=== PATIENT | male | born 1945 | race Caucasian/White ===

== ENCOUNTER → 2018-01-18 | Outpatient (CLI) | payer OTHER | LOC: BHLMT 11:00 | PROVIDERS: ATTEND Internal Medicine Interventional Cardiology | DX: I48.91 Unspecified atrial fibrillation (principal) | CPT/HCPCS: 93225-PO; 93226-PO ==

== ENCOUNTER 2018-02-17 07:35 | Day surgery (SDC) | payer OTHER ==
[2018-02-17] MEDS ORDERED: MIDAZOLAM 2 MG/2 ML VIAL IVP ONE (07:37)
[2018-02-17] MEDS ORDERED: ATROPINE SULFATE 1 MG/10 ML SYR IVP ONE (07:37)
[2018-02-17] MEDS ORDERED: NS 500 ML IV ONE (07:37)
[2018-02-17] MEDS ORDERED: fentaNYL 100 MCG/2 ML INJ IVP ONE (07:37)
[2018-02-17] MEDS ORDERED: BENZOCAINE UNIT DOSE SPRAY HURRICAINE MM ONE (07:37)
--- NOTE | 2018-02-17 07:58 | CPEKG ---
Heart Rate: 94 RR Interval: 638 QRSD Interval: 106 QT Interval: 404 QTC Interval: 506 QRS [place]: 11 T Wave [place]: 65 EKG Severity - ABNORMAL ECG - EKG Impression: ATRIAL FIBRILLATION, V-RATE 79-129 EKG Impression: BORDERLINE T WAVE ABNORMALITIES EKG Impression: PROLONGED QT INTERVAL Electronically Signed By: Henok Conway 17-Feb-2018 09:22:13
[2018-02-17 08:29] LABS: INR 1.37 (0.83-1.16)
--- NOTE | 2018-02-17 09:28 | PDHPUP ---
History & Physical Update H&P update statement: This history and physical update is based on an assessment of the patient which was completed after admission or registration (within 24 hours), but prior to the surgery/procedure. H&P update: H&P reviewed & patient examined, no change in patient's condition since H&P completed
[2018-02-17] MEDS ORDERED: PROPOFOL 200 MG/20 ML VIAL ONE ×2 (09:32)
[2018-02-17] MEDS ORDERED: LIDOCAINE 1% 5 ML SDV ONE (09:32)
--- NOTE | 2018-02-17 09:36 | PDANEPAE ---
ANE History of Present Illness AF ANE Past Medical History - Cardiovascular History Hx Hypertension: Yes Hx Arrhythmias: Yes Hx Chest Pain: No Hx Coronary Artery / Peripheral Vascular Disease: No Hx CHF / Valvular Disease: Yes Hx Palpitations: No Cardiovascular History Comment: [id number] - Pulmonary History Hx COPD: No Hx Asthma/Reactive Airway Disease: No Hx Recent Upper Respiratory Infection: No Hx Oxygen in Use at Home: No Hx Sleep Apnea: No - Endocrine History Hx Diabetes: No Hypothyroid: No Hyperthyroid: No Obesity: yes, severe - Renal History Hx Renal Disorders: No - Liver History Hx Hepatic Disorders: No - GI History GERD: mild Hx Gastrointestinal Disorders: No ANE Review of Systems Review of systems is: negative Review of Systems: - Exercise capacity Exercise capacity: limited by disability ANE Patient History - Allergies Allergies/Adverse Reactions: HAYFEVER Allergy (Mild, Uncoded 05/23/10 19:35) ITCHY EYES/SNEEZING - Home Medications Home Medications: Atorvastatin Calcium 10 mg PO DAILY 02/17/18 [Last Taken Unknown] Eliquis 5 mg PO BID 02/17/18 [Last Taken Unknown] Metoprolol Tartrate 25 mg PO BID 02/17/18 [Last Taken Unknown] - NPO status NPO Status: no food or drink >8 hours - Anes Hx Anes Hx: no prior problems - Smoking Hx Smoking Status: Former smoker - Alcohol Use Alcohol Use: None - Family Anes Hx Family Anes Hx: none ANE Labs/Vital Signs - Labs Result Diagrams: 02/17/18 07:56 - Vital Signs Vital Signs: reviewed preoperatively; see RN documention for details Height: 188 cm Weight: 136.1 kg ANE Physical Exam - Airway Neck exam: FROM Mallampati Score: Class 1 Mouth exam: dentures - Pulmonary Pulmonary: no respiratory distress - Cardiovascular Cardiovascular: irregularly irregular - ASA Status ASA Status: III ANE Anesthesia Plan Anesthesia Plan: GA with mask
--- NOTE | 2018-02-17 10:05 | POSTANESTH ---
Post Anesthetic Evaluation Cardiovascular Status: Similar to Pre-Op Cond Respiratory Status: Normal, Stable Level of Consciousness/Mental Status: Can Participate in Eval, Mildly Sleepy, Arousable Pain Control: Adequate, Prn Tx Ordered Nausea/Vomiting Control: Adequate, Prn Tx Ordered Complications Possibly Related to Anesthesia: None Noted
--- NOTE | 2018-02-17 10:07 | PDTEE1 ---
SIOBHAN Cardioversion Procedure Procedure: electrical cardioversion, transesophageal echo Indications: atrial fibrillation Consent: signed and in chart Anticoagulation: eliquis Procedural Details: Pads were placed in anterior-posterior position. SIOBHAN probe was advanced and standard images obtained. There is no evidence of left atrial or left atrial appendage thrombus. Synchronized cardioversion attempt #1: 200J Synchronized cardioversion attempt #2: 300J Synchronized cardioversion attempt #3: 360J Results: other (atrial fibrillation) Conclusions: other (unsuccessful cardioversion)
== END 2018-02-17 11:44 | disposition home or self-care (01) ==
LOC: FCATH 07:35
PROVIDERS: ATTEND Internal Medicine Interventional Cardiology
PROC: 5A2204Z Restoration of Cardiac Rhythm, Single (ICD-10-PCS; principal; 2018-02-17)
DX: I48.1 Persistent atrial fibrillation (principal); I10 Essential (primary) hypertension; E78.5 Hyperlipidemia, unspecified
CPT/HCPCS: J0461; J2704

== ENCOUNTER → 2018-03-10 | Outpatient (CLI) | payer OTHER | DX: I48.2 Chronic atrial fibrillation (principal); I10 Essential (primary) hypertension; R06.09 Other forms of dyspnea; R60.0 Localized edema; E78.00 Pure hypercholesterolemia, unspecified ==